=== PATIENT | female | born 1985 | race African-American/Black ===

== ENCOUNTER 2017-06-26 15:28 | Emergency (ER) | payer OTHER ==
[~2017-06-26] VITALS: Ht 162.6 cm; Wt 99.8 kg
[2017-06-26 15:40] VITALS: BP 149/90
--- NOTE | 2017-06-26 15:53 | Emergency Room Report ---
History of Present Illness General Chief Complaint: Head Injury Source: Patient Present Illness HPI 31 YO Female presents to the ED c/o 03/22 in severity scalp tenderness, with dull constant ROSALES x 2 days. s/p bumping her head on a counter top at work. pt. reports taking motrin x 2. denies visual changes, loss of vision, weakness, facial droop, nausea or vomiting. denies bleeding or open wounds. Denies Loss of consciousness Allergies: Coded Allergies: No Known Allergies (Unverified , 06/26/17) Patient History Past Medical History: see triage record Past Surgical History: none Pertinent Family History: none Now: No Reviewed Nursing Documentation: PMH: Agreed, PSxH: Agreed Nursing Documentation-PMH Past Medical History: No Stated History Review of Systems All Other Systems: negative except mentioned in HPI Physical Exam Vital Signs Date Time Temp Pulse Resp B/P (MAP) Pulse Ox O2 Delivery O2 Flow Rate FiO2 06/26/17 15:35 98.2 76 20 149/90 99 Room Air Sp02 EP Interpretation: reviewed, normal General Appearance: no apparent distress, alert, GCS 15, non-toxic Head: normocephalic, other - TTP to the top of the head, no lacs, bruises or swelling noted. Eyes: bilateral eye normal inspection, bilateral eye PERRL ENT: hearing grossly normal, normal pharynx, no angioedema, normal voice Neck: full range of motion Respiratory: chest non-tender, lungs clear, normal breath sounds, speaking full sentences Cardiovascular #1: regular rate, rhythm Musculoskeletal: back normal, gait/station normal, normal range of motion, non- tender Neurologic: alert, oriented x3, responsive, motor strength/tone normal, sensory intact, normal gait, speech normal, no pronator Skin: normal color, no rash, warm/dry, well hydrated Medical Decision Making PA Attestation Dr. Caceres is my supervising Physician whom patient management has been discussed with. Diagnostic Impression: Primary Impression: Contusion of scalp, initial encounter ER Course Pt. presents to the ED c/o 03/22 in severity scalp tenderness, with dull constant ROSALES x 2 days. s/p bumping her head on a counter top at work. pt. reports taking motrin x 2. denies visual changes, loss of vision, weakness, facial droop, nausea or vomiting. denies bleeding or open wounds. Denies Loss of consciousness -PT. also reports moderate nasal congestion x 1 week, has been taking OTC oxymetazoline spray Ddx considered but are not limited to Fracture, dislocation, contusion, concussion Sprain/Strain/Spasm, hematoma Vital signs: are WNL, pt. is afebrile H&PE are most consistent with contusion, no evidence of focal neurological deficit, no loss of consciousness. ORDERS: none required at this time. PE and HPI do not indicate CT at this time. ED INTERVENTIONS: - Excedrin PO -D/w Pt. reasoning for not doing Head CT, also discussed red flag symptoms to keep an eye out for that would indicate prompt return to the ED. - Pt. and responsible green party verbalize their understanding and agreement with proposed treatment plan. DISCHARGE: At this time pt. is stable for d/c to home. Will provide printed patient care instructions, and any necessary prescriptions. Care plan and follow up instructions have been discussed with the patient prior to discharge. Last Vital Signs Date Time Temp Pulse Resp B/P (MAP) Pulse Ox O2 Delivery O2 Flow Rate FiO2 06/26/17 15:35 98.2 76 20 149/90 99 Room Air Disposition: HOME, SELF-CARE Condition: Stable Scripts Mometasone Furoate (NASONEX) 17 Gm [place].pump 2 SPRAYS NASAL DAILY, #17 GM 0 Refills Prov: Sulma Will 06/26/17 Aspirin/Acetaminophen/Caffeine (EXCEDRIN MIGRAINE GELTAB) 1 Each Tablet 1 EACH PO Q6HR, #20 TAB Prov: Sulma Will 06/26/17 Patient Instructions: Facial or Scalp Contusion, [id number] Additional Instructions: Take medications as directed. Follow up with a Primary Care Provider in 3-5 days, even if your symptoms have resolved. --Please review list of primary care clinics, if you do not already have a primary care provider Return sooner to ED if new symptoms occur, or current symptoms become worse. - Please note that this Emergency Department Report was dictated using The [employer] physical education specialist technology software, occasionally this can lead to erroneous entry secondary to interpretation by the dictation equipment. Sulma Will Jun 26, 2017 15:53
[2017-06-26] MEDS ORDERED: EXCEDRIN MIGRA1 EACH PO (15:55)
[2017-06-26] MEDS ORDERED: NASONEX17 GM NASAL (15:55)
[2017-06-26] MEDS ORDERED: Excedrin Migraine tab ORAL ONE (16:15)
[2017-06-26 16:21] VITALS: BP 149/90
== END 2017-06-26 16:30 | disposition home or self-care (01) ==
LOC: EMR 16:07
DX: S00.03XA Contusion of scalp, initial encounter (principal); W22.8XXA Striking against or struck by other objects, initial encounter; Y93.9 Activity, unspecified; Y99.0 Civilian activity done for income or pay
CPT/HCPCS: 99284